=== PATIENT | female | born 1980 ===

== ENCOUNTER 2024-01-30 13:25 | Outpatient (REF) | payer SELFPAY | END 2024-01-30 13:26 | disposition home or self-care (01) | LOC: HO.HHCL 13:25 | PROVIDERS: Visit Provider General Practice | DX: Z13.89 Encounter for screening for other disorder (principal) ==

== ENCOUNTER 2024-03-19 11:01 | Outpatient (REF) | payer MEDICAID, OTHER, SELFPAY ==
[2024-03-19 13:04] LABS: MANUAL DIFF FLAG NO
[2024-03-19 13:10] LABS: Hematocrit 35.5 % (37.0-47.0); Hemoglobin 10.7 g/dl (12.0-16.0); Mean Corpuscular HGB Conc 30.1 g/dl (31.0-35.0); Mean Corpuscular Hemoglobin 20.9 pg (27.0-33.0); Mean Corpuscular Volume 69.5 fL (80.0-98.0); Red Blood Count 5.11 X10*6/uL (4.20-5.50); White Blood Count 9.1 X10*3/uL (4.8-10.8)
[2024-03-19 13:11] LABS: Basophils Percent Auto 0.2 % (0-2); Eosinophils Absolute Auto 0.2 X10*3/uL (0.0-0.4); Eosinophils Percent Auto 2.3 % (0-4); Imm Gran Abs Auto 0.04 X10*3/uL (0.00-0.03); Imm Gran Pct Auto 0.4 % (0.0-0.4); Lymphocytes Absolute Auto 1.5 X10*3/uL (1.2-4.9); Lymphocytes Percent Auto 16.3 % (20-40); Mean Platelet Volume 10.4 fL (9.4-12.3); Monocytes Absolute Auto 0.6 X10*3/uL (0.1-1.2); Monocytes Percent Auto 6.6 % (2-11); Neutrophils Absolute Auto 6.7 x10*3/uL (2.0-8.3); Neutrophils Percent Auto 74.2 % (45-73); Platelet Count 278 X10*3/uL (160-400)
[2024-03-19 13:42] LABS: Alanine Aminotransferase 9 U/L (0-31); Albumin Level 4.1 g/dL (3.5-5.0); Alkaline Phosphatase 115 U/L (39-117); Anion Gap 10 (12-20); Aspartate Amino Transferase 25 U/L (5-31); Bilirubin Total 0.3 mg/dL (0.0-1.0); Blood Urea Nitrogen 12 mg/dL (9-16); Calcium 8.3 mg/dL (8.4-10.2); Carbon Dioxide 23 mmol/L (22-29); Chloride 110 mmol/L (96-108); Cholesterol 198 mg/dL (<200); Estimated Glomerular Filt Rate > 60; Glucose Random 89 mg/dL (60-115); HDL Cholesterol 51 mg/dL (>40); Iron 28 mcg/dL (30-160); LDL Cholesterol Calculated 115 mg/dL (<100); Percent Iron Saturation 8 % (15-50); Sodium 139 mmol/L (135-145); Total Iron Binding Capacity 334 mcg/dL (228-428); Total Protein 7.1 g/dL (6.5-8.0); Triglycerides 160 mg/dL (<150); Unsaturated Iron Binding 306 ug/dL; Vitamin D 25-OH Total 34.7 ng/mL (>30)
[2024-03-19 14:03] LABS: Folate 11.2 ng/mL (> or = 4.0); Vitamin B12 172 pg/mL (200-900)
[2024-03-20 03:57] LABS: HBS Num1 0.66 mIU/mL (0-7.99); HBc Num1 0.12 S/CO (0.00-0.79); HBsAGNum1 0.36 S/CO (0.00-0.99); HIV AB/AG Nonreactive (Nonreactive); HIV Num 1 0.05 S/CO (0.00-0.99); Hepatitis B Core Antibody Nonreactive (Nonreactive); Hepatitis B Surface Antigen Negative (Negative); ~Hepatitis B Surface Antibody NONREACTIVE (Nonreactive)
[2024-03-25 05:58] LABS: Vitamin B1 10 nmol/L (8-30)
== END 2024-03-19 11:02 | disposition home or self-care (01) ==
LOC: HO.HHCL 11:01
PROVIDERS: Visit Provider General Practice
DX: Z98.84 Bariatric surgery status (principal); Z11.3 Encounter for screening for infections with a predominantly sexual mode of transmission
CPT/HCPCS: 36415; 80053; 80061; 82306; 82607; 82746; 83540; 84425; 85025; 86704; 86706; 87340; 87389

== ENCOUNTER 2024-07-14 16:10 | Outpatient (REF) | payer MEDICAID, OTHER, SELFPAY ==
--- OUTSIDE RECORDS SUMMARY | 2024-07-14 16:44 | XMS_ITS | Encounter Summary ---
Author Organization [employer] Address [address] [facility] [address] [place] [address] Care Team Providers Care Group Captain Name Role Phone Moraima Buckley [facility] Primary Care Provider [phone] Encounter Details Date Type Department Care Team (Latest Contact Info) Description 07/14/2024 Travel Social History Tobacco Use Types Packs/Day Years Used Date Smoking Tobacco: Never Smokeless Tobacco: Never Alcohol Use Standard Drinks/Week Comments Never 0 (1 standard drink = 0.6 oz pur e alcohol) Depression Answer Date Recorded Patient Health Questionnaire-9 Score 7 05/21/2024 Patient Health Questionnaire-9 Score 7 05/21/2024 Last PHQ-9: Questionnaire Data Not on file 0 05/21/2024 Housing Stability Answer Date Recorded What is your housing situation today? I have vickie chopra 01/30/[address] you li ve. Do you have problems with any of the following? None of the above 01/30/2024 Food Insecurity Answer Date Recorded Within the past 12 months, y ou worried that your food would run out before you got money to buy more: Never True 01/30/2024 Within the past 12 months,th e food you bought just didn't last and you didn't have enough money to get more: Never True Transportation Answer Date Recorded In the past 12 months, has l ack of transportation kept you from medical appts, meetings, work or from getting things needed for daily living? No 01/30/2024 Utilities Answer Date Recorded In the past 12 months, has t he electric, gas, oil or water company threatened to shut off services in your home? No 01/30/2024 Depression Answer Date Recorded Patient Health Questionnaire-2 Score 2 05/21/2024 Internet Access Answer Date Recorded Internet Access Q1 Yes 01/30/2024 Internet Access Q2 Not on file 01/30/2024 Comments No Sex and Gender Information Value Date Recorded Sex Assigned at Female 12/22/2023 4:29 PM EDT Legal Sex Female 4:27 PM EDT Gender Identity Female 12/22/2023 4:29 PM EDT Sexual Orientation Straight 12/22/2023 4: 29 PM EDT documented as of this encounter Plan of Treatment Upcoming Encounters Date Type Department Care Team (Late st Contact Info) Description 07/16/2024 3:00 PM EDT Office Visit [facility] MEDICINE [address] [place] [address] Moraima Buckley FNP [address] [place] [address] 07/19/2024 11:30 AM EDT Clinical Support [facility] DIABETES/NUTRITION [address] [place] [address] [place] [address] documented as of this encounter Visit Diagnoses Not on filedocumented in this encounter Additional Health Concerns Assessment Noted Time PHQ-9 Depression Total Score: 7 05/22/19 10:31 AM EST documented as of this encounter Care Teams Group Captain Relationship Specialty Start Date End Date Moraima Buckley FNP [address] [place], [place] [id number] PCP - General Family Medicine 04/30/24 documented as of this encounter
--- OUTSIDE RECORDS SUMMARY | 2024-07-14 16:44 | XMS_ITS | Clinical Summary ---
Author Organization [employer] Address [address] [facility] 7[address] [place] [address] Care Team Providers Care Associate Doctor Name Role Phone Moraima Buckley [facility] Primary Care Provider Allergies Active Allergy Reactions Criticality Noted Date Comments Shellfish Allergy Unknown 07/14/2024 Medications * This document contains information received from the source organization and may not represent a complete record from that organization. albuterol 108 (90 Base) MCG/ACT inhaler INHALE 2 PUFFS INTO THE LUNGS EVERY 4 TO 6 HOURS NEEDED 12/02/2023 Active biotin 1 MG capsule Take by mouth. Active Multiple Vitamin (Multivitamin) tabletIndication s:History of bariatric surgery TAKE 1 TABLET BY MOUTH EVERY DAY 90 tablet 03/02/2024 Active hydrOXYzine pamoate (Vistaril) 25 MG capsule TAKE 1 CAPSULE BY MOUTH IN THE MORNING AND AT BEDTIME NEEDED FOR ANXIETY 60 capsule 04/22/2024 Active ferrous gluconate (Fergon) 324 (38 Fe) MG tabletIndication s:History of bariatric surgery,Iron deficiency anemia, unspecified iron deficiency anemia type Take 1 tab every other day 90 tablet 3 05/21/2024 Active cyanocobalamin ([facility] Vitamin B-12) 1000 MCG tabletIndication s:History of bariatric surgery,Vitamin B12 deficiency Take 1 tablet (1,000 mcg) by mouth Once per day. 30 tablet 11 05/21/2024 05/22/19 26 Active sertraline (Zoloft) 100 MG tabletIndication s:Persistent depressive disorder TAKE 2 TABLETS BY MOUTH EVERY MORNING 180 tablet 1 05/21/2024 Active Levonorgest-Eth Estrad 91-Day (Camrese Lo) 0.1-0.02 & 0.01 MG tabletIndication s:Family planning counseling Take 1 tablet by mouth Once per day. 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 Reports vegetarian diet. Denies nausea, diarrhea, abdominal cramping, shaking or unusual seating. Plan Blood work every 3 months x 3 and annually thereafter Calcium, vit D, folate, vit b12, B1, Vit a, PTH level Monitor for dumping syndrome, steatorrhea, easy bruising, hypoglycemia, fragile bone, numbness and tingling Patient education - Dietary and exercise counseling Referral Tempering Machine Operator Screening mammogram for breast cancer 02/01/2024 Assessment & Plan (02/01/2024 10:50 PM EST): No history of mammogram Plan Referral for mammogram Dietary counseling 02/01/2024 Assessment & Plan (02/01/2024 10:44 PM EST): Eat 3 meals a day, especially breakfast Eat healthy and focus on healthyfood choices daily fruits, vegetables, grains, low fat milk, low carbohydrate and fat Maintain healthy weight. Eat with family Exercise counseling 02/01/2024 Assessment & Plan (02/01/2024 10:44 PM EST): Be physically active at least 45 minutes a day Persistent depressive disorder 12/31/2023 Assessment & Plan (02/06/2024 9:27 AM EST): During IBH Consult Bee presenting with depressed mood, hopelessness, irritable mood, loss of interests/pleasure , sense of isolation/loneliness , isolating, changes in sleep difficulty falling asleep and difficulty staying asleep , psychomotor retardation, fatigue/loss of energy, difficulty concentrating, indecisiveness; for a period of 6-12 mo, for most or all symptoms in the context of financial concern, employment concern, and recent move. Bee reports slight improvement of symptoms. She's now engaged with psychiatry services with our [facility] psych provider. Pt is able to process her emotions and validate them as part of her new life after relocating from [facility]. She receives positive support from her . Her sense of spirituality is strong and identify as main strength. clinician engaged patient with active/reflective listening. Reviewed and assessed for risk, current stressors and protective factors using open-ended questions. Explored mechanisms that pt can incorporate into daily routine to manage sxs. clinician will follow-up with patient during next medical appointment. Assessment & Plan (01/02/2024 10:39 AM EDT): During IBH Consult Bee presenting with depressed mood, hopelessness, loss of interests/pleasure , sense of isolation/loneliness , isolating, change in appetite or weight overeating, changes in sleep difficulty falling asleep and difficulty staying asleep , psychomotor retardation, fatigue/loss of energy, difficulty concentrating and excessive worry/anxiety, difficulty controlling worry, anxiety/worry associated to restlessness and/or feeling keyed-up/On edge , easily fatigued , difficulty concentrating and/or mind going blank , and sleep disturbance difficulty falling asleep and difficulty staying asleep , and sense of dread ; for a period of 6-12 mo, for some symptoms in the context of financial concern, employment concern, and recent move. Bee reports increase of sxs due to relocation from [facility]. She lives with her and daughter. Her oldest son stayed in [facility] with the grandparents. Pt feels stressed, emotionally overwhelmed and has difficulty processing change. She was connected with MH services in [facility], had a psychiatrist and was under medication management over the last years. PCP, Ashanti, started medication on last visit. Her strong sense of lashay and spirituality is identified as main strength for sxs. clinician engaged patient with active/reflective listening. Reviewed and assessed for risk, current stressors and protective factors using open-ended questions. Explored mechanisms that pt can incorporate into daily routine to manage sxs. Pt will be refer to new [facility] psychiatry for medication management. Currently, unable to place external referrals for services due to limited insurance. Pt was given with information for [facility] to request list of providers who are taking her insurance. clinician will follow-up with patient during next medical appointment. Moderate anxiety 12/31/2023 Assessment & Plan (02/09/2024 12:31 PM EST): Hx of depression and anxiety started on sertraline 200 mg daily and quetiapine 30 mg (half tab two times daily). Patient complained of not tolerating quetiapine because of the drowsy side effect but doing well on sertraline and therapy. Currently seen by therapist and awaiting to to be bridged to a psych prescriber and therapist. WILMER 7 Plan Stop taking quetiapine due to side effects and unclear indication in presumably unipolar depression Continue with therapy and Sertraline as prescribed Assessment & Plan (01/02/2024 10:39 AM EDT): During IBH Consult Bee presenting with depressed mood, hopelessness, loss of interests/pleasure , sense of isolation/loneliness , isolating, change in appetite or weight overeating, changes in sleep difficulty falling asleep and difficulty staying asleep , psychomotor retardation, fatigue/loss of energy, difficulty concentrating and excessive worry/anxiety, difficulty controlling worry, anxiety/worry associated to restlessness and/or feeling keyed-up/On edge , easily fatigued , difficulty concentrating and/or mind going blank , and sleep disturbance difficulty falling asleep and difficulty staying asleep , and sense of dread ; for a period of 6-12 mo, for some symptoms in the context of financial concern, employment concern, and recent move. Bee reports increase of sxs due to relocation from [facility]. She lives with her and daughter. Her oldest son stayed in [facility] with the grandparents. Pt feels stressed, emotionally overwhelmed and has difficulty processing change. She was connected with MH services in [facility], had a psychiatrist and was under medication management over the last years. PCP, Ashanti, started medication on last visit. Her strong sense of lashay and spirituality is identified as main strength for sxs. clinician engaged patient with active/reflective listening. Reviewed and assessed for risk, current stressors and protective factors using open-ended questions. Explored mechanisms that pt can incorporate into daily routine to manage sxs. Pt will be refer to new [facility] psychiatry for medication management. Currently, unable to place external referrals for services due to limited insurance. Pt was given with information for [place] [facility] to request list of providers who are taking her insurance. clinician will follow-up with patient during next medical appointment. Encounters * This document contains information received from the source organization and may not represent a complete record from that organization. Date Type Department Care Team Description 07/14/2024 10:00 AM EDT Procedure Visit [address] [address] Moraima Buckley FNP Pap smear for cervical cancer screening (Primary Dx); Family planning counseling; Vaginal discharge 07/14/[address] [address] Caitlin Montesinos MA Chart Prep 07/14/2024 Travel 07/13/[address] [address] Benitez Rhodes MA chartprep 07/06/[address] [address] Moraima Buckley FNP Nurse Triage 06/25/2024 11:00 AM EDT Nutrition [facility] DIABETES/NUTRITION [address] [place] [phone] History of bariatric surgery 06/25/2024 Travel 06/23/[address] [address] Moraima Buckley FNP Contraception 05/21/2024 10:00 AM EST Office Visit [address] [address] Moraima Buckley FNP History of bariatric surgery (Primary Dx); Persistent depressive disorder; Iron deficiency anemia, unspecified iron deficiency anemia type; Vitamin B12 deficiency 05/21/2024 Travel 05/13/[address] [address] Moraima Buckley, [employer] KNIFE CUTTER MACHINE nutrition appt request 05/13/2024 Telephone [facility] MED & PEDS [address] [place] [address] Dean Buckleye, [employer]CULAR KNIFE CUTTER MACHINE chartprep 04/21/2024 Telephone [facility] MEDICINE [address] [place] [phone] Moraima Buckley, [employer] KNIFE CUTTER MACHINE Med Refill 04/19/2024 Telephone [facility] MEDICINE [address] [place] [phone] Dean Buckleye, CIRCULAR KNIFE CUTTER MACHINE Med Refill 04/16/2024 Telephone [facility] MEDICINE [address] [place] [phone] Moraima Buckley, CIRCULAR KNIFE CUTTER MACHINE Referral 04/16/2024 Refill [facility] MEDICINE [address] [place] [phone] Dean Buckleye, [employer]CULAR KNIFE CUTTER MACHINE Anxiety and depression from Last 3 Months Social History Tobacco Use Types Packs/Day Years Used Date Smoking Tobacco: Never Smokeless Tobacco: Never Tobacco Cessation:Counseling Given: Not Answered Alcohol Use Standard Drinks/Week Comments Never 0 [...] Orientation Straight 12/22/2023 4: 29 PM EDT Last Filed Vital Signs Vital Sign Reading Time Taken Comments Blood Pressure 112/68 07/14/2024 10:25 AM EDT Pulse 72 07/14/2024 10:25 AM EDT Temperature 36.7 ??C (98.1 ??F) 05/21/2024 10:[address] Respiratory Rate 18 07/14/2024 10:25 AM EDT Oxygen Saturation 98% 05/21/2024 10:12 AM EST Inhaled Oxygen Concentration - - Weight 91.2 kg (201 lb) 07/14/2024 10:25 AM EDT Height 165 cm (5' 4.96 ) 07/14/2024 10:25 AM EDT Body Mass Index 33.49 07/14/2024 10:25 AM EDT Plan of Treatment Upcoming Encounters Date Type Department Care Team (Late st Contact Info) Description 07/16/2024 3:00 PM EDT Office Visit [facility] MEDICINE [address] [place] [address] Moraima Buckley FNP [address] [place] [address] 07/19/2024 11:30 AM EDT Clinical Support [facility] DIABETES/NUTRITION [address] [place] [address] Yodit Queen, POWER [address] [place] [address] Health Maintenance Due Date Last Done Comments Hepatitis C Screening 12/15/1997 DTaP/Tdap/Td Vaccines (1 - Tdap) 12/15/1998 Hepatitis B Vaccines (1 of 3 - 19+ 3-dose series) 12/15/1998 Pap Smear 12/15/2000 Cervical Cancer Screening 12/15/2009 HPV/Cotest 12/15/2009 Mammogram 2019 COVID-19 Vaccine (1 - 2023-2 5 season) 2023 Influenza Vaccine (#1) 2023 Alcohol/Substance Use Screening 01/29/2025 01/30/2024 SDOH Screening 01/29/2025 01/30/2024 Depression Screening 05/21/2025 05/21/2024, 05/21/2024 Family Planning (PISQ) 07/14/2025 07/14/2024 Tobacco Screening 07/14/2025 07/14/2024 Zoster Vaccines (1 of 2) 12/15/2029 RSV Patients and Patients Aged 60 years or older (1 - 1-dose 75+ series) 12/15/2054 HIV Screening Completed 03/19/2024 HIB Vaccines Aged Out No longer eligi ble based on patient's age to complete this topic HPV Vaccines Aged Out No longer eligi ble based on patient's age to complete this topic Hepatitis A Vaccines Aged Out No long er eligible based on patient's age to complete this topic IPV Vaccines Aged Out No longer eligi ble based on patient's age to complete this topic Meningococcal Vaccine Aged Out No clayton brooks eligible based on patient's age to complete this topic Pneumococcal Vaccine: Pediatrics (0 to 5 Years) and At-Risk Patients (6 to 49) Years) Aged Out No longer eligible b ased on patient's age to complete this topic RSV under 20 months Aged Out No longe r eligible based on patient's age to complete this topic Rotavirus Vaccines Aged Out No longer eligible based on patient's age to complete this topic Procedures Procedure Name Priority Date/Time Associated Diagnosis Comments POCT , URINE Routine 07/14/2024 10:41 AM EDT Family planning counseling HIV 1/2 ANTIGEN/ANTIBODY, FOURTH GENERATION W/RFL Routine 03/19/2024 11:04 AM EST Routine screening for STI (sexually transmitted infection) from Last 3 Months or Most Recently Relevant to Health Maintenance Results * POCT Urine (07/14/2024 10:41 AM EDT) Preg Test, Ur Negative Negative, Indeterminate, None Detected, Invalid, Specimen unsatisfactory for evaluation, Weakly Positive [employer] Media Lot # [id number] Lot# Expiration Date [id number] Urine 07/14/2024 10:4 1 AM EDT us Moraima Buckley [employer] KNIFE CUTTER MACHINE POINT OF CARE TEST ENTER/EDIT ORDERABLES Final Result * HIV-1/2 Antigen and Antibodies, Fourth Generation, with Reflexes (03/19/2024 11:04 AM EST) HIV AB/AG Nonreactive Nonreactive [facility] Comment:HIV-1 p24 Ag and/or HIV-1/HIV-2 Ab not detected.A test result that is nonreactive does not exclude thepossibility of exposure to or infection with HIV-1 and/orHIV-2. Nonreactive results in this assay for individualswith prior exposure to HIV-1 and/or HIV-2 may be due toantigen and antibody levels that are below the limit ofdetection of this assay.The Stion HIV Ag/Ab Combo assay result andsupplemental assay results should be interpreted inconjunction with the patient's clinical presentation,history and other laboratory results. If the results areinconsistent with clinical evidence, additional testing issuggested to confirm the result. Blood Venous blood specimen / Unknown 03/19/2024 11:04 AM EST 03/19/2024 12:58 PM EST us Milagros Dennison MD LAB BLOOD ORDERABLES Final Res ult [facility] [address] [place] [phone] from Last 3 Months or Most Recently Relevant to Health Maintenance Insurance [address] [place] [id number] [facility] Care Teams Associate Doctor Relationship Specialty Start Date End Date Moraima Buckley FNP [address] [place] [address] PCP - General Family Medicine 04/30/24
--- OUTSIDE RECORDS SUMMARY | 2024-07-14 16:44 | XMS_ITS | Encounter Summary ---
Author Organization [employer] Address [address] [facility] 7t [place] [address] Care Team Providers Care Cabin Furnishings Installer Name Role Phone Moraima Buckley Primary Care Provider [phone] Encounter Details Date Type Department Care Team (Latest Contact Info) Description 07/14/2024 10:00 AM EDT Procedure Visit [facility] MEDICINE [address] [place], [place] [phone] Moraima Buckley FNP [address] [place], [place] [phone] Pap smear for cervical cancer screening (Primary Dx); Family planning counseling; Vaginal discharge Social History Tobacco Use Types Packs/Day Years [...] PM EDT documented as of this encounter Last Filed Vital Signs Vital Sign Reading Time Taken Comments Blood Pressure 112/68 07/14/2024 10:25 AM EDT Pulse 72 07/14/2024 10:25 AM EDT Temperature - - Respiratory Rate 18 07/14/2024 10:25 AM EDT Oxygen Saturation - - Inhaled Oxygen Concentration - - Weight 91.2 kg (201 lb) 07/14/2024 10:25 AM EDT Height 165 cm (5' 4.96 ) 07/14/2024 10:25 AM EDT Body Mass Index 33.49 07/14/2024 10:25 AM EDT documented in this encounter Progress Notes * Moraima Buckley, KATT - 07/14/2024 10:00 AM EDT Subjective Patient ID: Bee Hutton is a 43 y.o. female who presents for pap sear and contraception Pap history: Reports never had pap smear STI history: Denies hx of STI Denies vaginal itching, odor, burning, leaking, or urinary urgency. LMP 06/29/2024. Normal flow. Denies abnormal bleeding Declines bimanual exam and breast exam history: 2 living children. Not interest in having children. Discussed contraceptive options with patient. Originally scheduled for IUD insertion but declined. Patient interested in menstrual suppression. No contra indications for any methods Sexual activity: Currently not sexually active. Lives with and daughter no concern for IVP Last mammogram unknown. Patient has outstanding order missed appointment yet to reschedule Review of Systems Constitutional: Negative for chills and fever. Genitourinary: Negative for difficulty urinating, genital sores, pelvic pain, vaginal bleeding, vaginal discharge and vaginal pain. Objective Visit Vitals BP 112/68 (BP Location: Right arm, Patient Position: Sitting, BP Cuff Size: Large adult) Pulse 72 Resp 18 Ht 5' 4.96 (1.65 m) Wt 201 lb (91.2 kg) BMI 33.49 kg/m?? OB Status Having periods Smoking Status Never BSA 2.04 m?? Physical Exam Exam conducted with a project manager interior design present (Ariadna Goetz). Genitourinary: General: Normal vulva. Labia: Right: No rash, tenderness or lesion. Left: No rash, tenderness or lesion. Vagina: Vaginal discharge present. No erythema, bleeding or prolapsed vaginal richards. Cervix: Discharge present. No cervical motion tenderness, friability, lesion, erythema or cervical bleeding. Comments: Declined bi manual Assessment/Plan Diagnoses and all orders for this visit: Pap smear for cervical cancer screening - Pap Smear - Co test 5 yrs if normal Family planning counseling - POCT Urine - Levonorgest-Eth Estrad 91-Day (Camrese Lo) 0.1-0.02 & 0.01 MG tablet; Take 1 tablet by mouth Once per day. Reviewed options together agreed on extended cycle OCP. Reviewed side effects and danger signs Reviewed possible reduced absorption of pills with gastric bypass BP check 2-3 months Vaginal discharge BV swab sent due to excessive vaginal discharge - Bacterial Vaginosis Panel Will treat positive result ASSISTANT PROFESSOR NURSE EDUCATION Resident Attestation: Patient was seen and evaluated by Moraima BOLIVAR in collaboration with Ariadna Goetz CNM who has reviewed my assessment and plan. I, Ariadna Goetz CNM , have reviewed the resident's note and agree with the assessment & plan of care as documented above. documented in this encounter Plan of Treatment Upcoming Encounters Date Type Department Care Team (Late st Contact Info) Description 07/16/2024 3:00 PM EDT Office Visit [facility] MEDICINE [address] [place] [address] Moraima Buckley FNP [address] [place] [address] 07/19/2024 11:30 AM EDT Clinical Support [facility] DIABETES/NUTRITION [address] [place] [address] [place] [address] Scheduled Orders Name Type Priority Associated Diagnoses Order Schedule Bacterial Vaginosis Panel Microbiology Routine Vaginal discharge Ordered: 07/14/2024 Pap Smear Pathology and Cytology Routine Pap smear for cervical cancer screening Ordered: 07/14/2024 documented as of this encounter Procedures Procedure Name Priority Date/Time Associated Diagnosis Comments POCT , URINE Routine 07/14/2024 10:41 AM EDT Family planning counseling documented in this encounter Results * POCT Urine (07/14/2024 10:41 AM EDT) Preg Test, Ur Negative Negative, Indeterminate, None Detected, Invalid, Specimen unsatisfactory for evaluation, Weakly Positive QC Media Lot # [id number] Lot# Expiration Date [id number] Urine 07/14/2024 10:4 1 AM EDT Moraima BOLIVAR POINT OF CARE TEST ENTER/EDIT ORDERABLES Final Result documented in this encounter Visit Diagnoses Diagnosis Pap smear for cervical cancer screening- Primary Screening for malignant neoplasm of the cervix Family planning counseling Other general counseling and advice for contraceptive management Vaginal discharge Leukorrhea, not specified as infective documented in this encounter Additional Health Concerns Assessment Noted Time PHQ-9 Depression Total Score: 7 05/22/19 10:31 AM EST documented as of this encounter Care Teams Cabin Furnishings Installer Relationship Specialty Start Date End Date Moraima Buckley FNP [address] [place] [address] PCP - General Family Medicine 04/30/24 documented as of this encounter
--- OUTSIDE RECORDS SUMMARY | 2024-07-14 16:44 | XMS_ITS | Encounter Summary ---
Author Organization [employer] Address [address] [facility] 7t [place] [address] Care Team Providers Care Tag Marker Name Role Phone Moraima Buckley CUSTOMER SERVICE CLERK Primary Care Provider [phone] Reason for Visit * Reason Onset Date Comments chartprep 07/13/2024 Encounter Details Date Type Department Care Team ([facility] st Contact Info) Description 07/13/2024 Telephone [facility] MEDICINE [address] [place], [place] [phone] Benitez Rhodes MA chartprep Social History Tobacco Use Types Packs/Day Years [...] PM EDT documented as of this encounter Miscellaneous Notes * Telephone Encounter - Benitez Rhodes MA - 07/13/2024 11:11 AM EDT Chart Prep Labs: done except Iron and total iron binding Images: done mammogram ordered Referrals: complete bariatric surgery Referral and notes faxed to Fax to [facility] ([facility]) [phone] .Patient got her surgery done on October 2023 in her country [facility]. Vaccines due: Covid, flu, Hep B, Tdap, Screenings: pap smear Overdue care gaps: Oral health screening and Disability screen documented in this encounter Plan of Treatment Upcoming Encounters Date Type Department Care Team (Late st Contact Info) Description 07/16/2024 3:00 PM EDT Office Visit [facility] MEDICINE [address] [place] [address] Moraima Buckley FNP [address] [place] [address] 07/19/2024 11:30 AM EDT Clinical Support [facility] DIABETES/NUTRITION [address] [place] [address] [place] [address] documented as of this encounter Visit Diagnoses Not on filedocumented in this encounter Additional Health Concerns Assessment Noted Time PHQ-9 Depression Total Score: 7 05/22/19 25 10:31 AM EST documented as of this encounter Care Teams Tag Marker Relationship Specialty Start Date End Date Moraima Buckley FNP [address] [place] [address] PCP - General Family Medicine 04/30/24 documented as of this encounter
--- OUTSIDE RECORDS SUMMARY | 2024-07-14 16:44 | XMS_ITS | Encounter Summary ---
Author Organization [employer] Address [address] [facility] 7t [place] [address] Care Team Providers Care Coal Cutting Machine Operator Name Role Phone Moraima Buckley KATT Primary Care Provider [phone] Marcio Moraimajennifer BOLIVAR Primary Care Provider [phone] Reason for Visit * Reason Comments Med Refill Encounter Details Date Type Department Care Team (Late st Contact Info) Description 02/11/2024 Refill [facility] [address] [place] [address] Ashanti Ledesma NP [address] [place], [place] [phone] Anxiety and depression Social History Tobacco Use Types Packs/Day Years Used Date Smoking Tobacco: Never Smokeless Tobacco: Never Alcohol Use Standard Drinks/Week Comments Never 0 (1 standard drink = 0.6 oz pur e alcohol) Depression Answer Date Recorded Patient Health Questionnaire-9 Score 9 02/06/2024 Patient Health Questionnaire-9 Score 9 02/06/2024 Last PHQ-9: Questionnaire Data Not on file 1 04/07/2023 Housing Stability Answer Date Recorded What is [...] Answer Date Recorded Patient Health Questionnaire-2 Score 3 02/06/2024 Internet Access Answer Date Recorded Internet Access [...] Description 07/16/2024 3:00 PM EDT Office Visit [facility] MEDICINE [address] [place] [address] Moraima Buckley FNP [address] [place] [address] 07/19/2024 11:30 AM EDT Clinical Support [facility] DIABETES/NUTRITION [address] [place] [address] Yodit Queen, POWER [address] [place] [address] documented as of this encounter Visit Diagnoses Diagnosis Anxiety and depression documented in this encounter Additional Health Concerns Assessment Noted Time PHQ-9 Depression Total Score: 9 02/06/20 24 9:06 AM EST documented as of this encounter Care Teams Coal Cutting Machine Operator Relationship Specialty Start Date End Date Moraima Buckley FNP [address] [place] [address] PCP - General Family Medicine 01/30/24 04/29/24 Moraima Buckley FNP [address] [place] [address] PCP - General Family Medicine 04/30/24 documented as of this encounter
--- OUTSIDE RECORDS SUMMARY | 2024-07-14 16:44 | XMS_ITS | Encounter Summary ---
Author Organization [employer] Address [address] [facility] 7t [place] [address] Care Team Providers Care Crusher And Binder Operator Name Role Phone Moraima Buckley Primary Care Provider [phone] Moraima Buckley Primary Care Provider [phone] Reason for Visit * Reason Onset Date Comments Results 04/01/2024 Encounter Details Date Type Department Care Team ([facility] st Contact Info) Description 04/01/2024 Telephone [facility] MEDICINE [address] [place], [place] [phone] Moraima Buckley FNP [address] [place], [place] [phone] Results Social History Tobacco Use Types Packs/Day Years [...] encounter Miscellaneous Notes * Telephone Encounter - Nishant Hathaway - 04/21/2024 1:55 PM EST Pt calling again ... TC from pt requesting call back regarding Results. Type of results: lab work Diabetes Date when done: 03/19 Facility: [facility] * Telephone Encounter - Sheila Sanchez - 04/01/2024 1:39 PM EST TC from pt requesting call back regarding Results. Type of results: lab work Diabetes Date when done: 03/19 Facility: [facility] documented in this encounter Plan of Treatment Upcoming Encounters Date Type Department Care Team (Late st Contact Info) Description 07/16/2024 3:00 PM EDT Office Visit [facility] MEDICINE [address] [place] [address] Moraima Buckley FNP [address] [place] [address] 07/19/2024 11:30 AM EDT Clinical Support [facility] DIABETES/NUTRITION [address] [place] [address] [place] [address] documented as of this encounter Visit Diagnoses Not on filedocumented in this encounter Additional Health Concerns Assessment Noted Time PHQ-9 Depression Total Score: 9 02/06/20 24 9:06 AM EST documented as of this encounter Care Teams Crusher And Binder Operator Relationship Specialty Start Date End Date Moraima Buckley FNP [address] [place] [address] PCP - General Family Medicine 01/30/24 04/29/24 Moraima Buckley FNP [address] [place] [address] PCP - General Family Medicine 04/30/24 documented as of this encounter
--- OUTSIDE RECORDS SUMMARY | 2024-07-14 16:44 | XMS_ITS | Encounter Summary ---
Author Organization [employer] Address [address] [facility] 7t [place] [address] Care Team Providers Care Foreclosure Specialist Name Role Phone Moraima Buckley [facility] Primary Care Provider [phone] Reason for Visit * Reason Onset Date Comments Chart Prep 07/14/2024 Encounter Details Date Type Department Care Team ([facility] st Contact Info) Description 07/14/2024 Telephone [facility] MEDICINE [address] [place], [place] [phone] Caitlin Montesinos MA Chart Prep Social History Tobacco Use Types Packs/Day Years [...] encounter Miscellaneous Notes * Telephone Encounter - Caitlin Montesinos MA - 07/14/2024 11:47 AM EDT Chart Prep Labs: not applicable Images: not done Referrals: not applicable Vaccines due: Covid, Flu, Tdap, and Hep B Screenings: Hep C Overdue care gaps: Tobacco documented in this encounter Plan of Treatment Upcoming Encounters Date Type Department Care Team (Late st Contact Info) Description 07/16/2024 3:00 PM EDT Office Visit [facility] MEDICINE [address] [place] [address] Moraima Buckley FNP [address] [place] [address] 07/19/2024 11:30 AM EDT Clinical Support [facility] DIABETES/NUTRITION [address] [place] [address] Yodit Queen, POWER [address] [place] [address] documented as of this encounter Visit Diagnoses Not on filedocumented in this encounter Additional Health Concerns Assessment Noted Time PHQ-9 Depression Total Score: 7 05/22/19 10:31 AM EST documented as of this encounter Care Teams Foreclosure Specialist Relationship Specialty Start Date End Date Moraima Buckley FNP [address] [place] [address] PCP - General Family Medicine 04/30/24 documented as of this encounter
--- OUTSIDE RECORDS SUMMARY | 2024-07-14 16:44 | XMS_ITS | Encounter Summary ---
Author Organization [employer] Address [address] [facility] 7t [place] [address] Care Team Providers Care Quality Director Name Role Phone Moraima Buckley Primary Care Provider [phone] Moraima Buckley Primary Care Provider [phone] Reason for Visit * Reason Onset Date Comments Med Refill 04/19/2024 Encounter Details Date Type Department Care Team ([facility] st Contact Info) Description 04/19/2024 Telephone [facility] MEDICINE [address] [place], [place] [phone] Moraima Buckley FNP [address] [place], [place] [phone] Med Refill Social History Tobacco Use Types Packs/Day Years [...] encounter Miscellaneous Notes * Telephone Encounter - Lindsay Salmon LPN - 04/19/2024 11:08 AM EST Multivitamin was sent to [facility] on 03/02/24 90 day supply and other medications pended to PCP. * Telephone Encounter - Sebastian aCo - 04/19/2024 10:52 AM EST TC from pt requesting medication refill. Medications needing refill : sertraline (Zoloft) 100 MG tablet Multiple Vitamin (Multivitamin) tablet hydrOXYzine pamoate (Vistaril) 25 MG capsule To be sent to: [facility] documented in this encounter Plan of Treatment Upcoming Encounters Date Type Department Care Team (Late st Contact Info) Description 07/16/2024 3:00 PM EDT Office Visit [facility] MEDICINE [address] [place] [address] Moraima Buckley FNP [address] [place] [address] 07/19/2024 11:30 AM EDT Clinical Support [facility] DIABETES/NUTRITION [address] [place] [address] Yodit Queen, POWER [address] [place], [place] [phone] documented as of this encounter Visit Diagnoses Not on filedocumented in this encounter Additional Health Concerns Assessment Noted Time PHQ-9 Depression Total Score: 9 02/06/20 24 9:06 AM EST documented as of this encounter Care Teams Quality Director Relationship Specialty Start Date End Date Moraima Buckley FNP [address] [place] [address] PCP - General Family Medicine 01/30/24 04/29/24 Moraima Buckley FNP [address] [place] [address] PCP - General Family Medicine 04/30/24 documented as of this encounter
--- OUTSIDE RECORDS SUMMARY | 2024-07-14 16:44 | XMS_ITS | Encounter Summary ---
Author Organization [employer] Address [address] [facility] 7t [place] [address] Care Team Providers Care Sales Support Administrator Name Role Phone Moraima Buckley Primary Care Provider [phone] Moraima Buckley Primary Care Provider [phone] Reason for Visit * Reason Onset Date Comments Med Refill 04/21/2024 Encounter Details Date Type Department Care Team ([facility] st Contact Info) Description 04/21/2024 Telephone [facility] MEDICINE [address] [place], [place] [phone] Moraima Buckley FNP [address] [place], [place] [phone] Med Refill Social History Tobacco Use Types [...] Description 07/16/2024 3:00 PM EDT Office Visit [facility] MEDICINE [address] [place] [address] Moraima Buckley FNP [address] [place] [address] 07/19/2024 11:30 AM EDT Clinical Support [facility] DIABETES/NUTRITION [address] [place] [address] Yodit Queen, POWER [address] [place] [address] documented as of this encounter Visit Diagnoses Not on filedocumented in this encounter Additional Health Concerns Assessment Noted Time PHQ-9 Depression Total Score: 9 02/06/20 24 9:06 AM EST documented as of this encounter Care Teams Sales Support Administrator Relationship Specialty Start Date End Date Moraima Buckley FNP [address] [place] [address] PCP - General Family Medicine 01/30/24 04/29/24 Moraima Buckley FNP [address] [place] [address] PCP - General Family Medicine 04/30/24 documented as of this encounter
[2024-07-14 20:07] LABS: Bacterial Vaginosis PCR NEGATIVE (Negative); Candida Group PCR NOT DETECTED (Not Detect); Candida glab krusei PCR NOT DETECTED (Not Detect); Trichomonas vaginalis PCR NOT DETECTED (Not Detect)
[2024-07-20 14:04] LABS: HPV Genotype 16 Negative (Negative); HPV Genotype 18 Negative (Negative); HPV High Risk Negative (Negative)
== END 2024-07-14 16:11 | disposition home or self-care (01) ==
LOC: HO.LNP 16:10
PROVIDERS: Visit Provider Nurse Practitioner Family
DX: Z12.4 Encounter for screening for malignant neoplasm of cervix (principal); N89.8 Other specified noninflammatory disorders of vagina; Z11.51 Encounter for screening for human papillomavirus (HPV)
CPT/HCPCS: 81515; 87626; 88175